=== PATIENT | female | born 1950 | race American Indian/Alaskan Native ===

== ENCOUNTER 2016-09-21 10:26 | Inpatient (IN) | payer MEDICARE, BC, OTHER ==
[~2016-09-21] VITALS: Ht 165.1 cm; Wt 96.5 kg
[~2016-09-21 10:26] MED LIST: ASPI-496 PO; ERGO500017 PO; FERR324T5 PO; INSU100V13 SQ; KETO5DRO4 OP; LORA10TA3 PO; LOSA25TA5 PO; ROSU20TA PO; SODI650T PO
[2016-09-21 11:28] VITALS: BP 137/85
[2016-09-21 11:41] LABS: BLOOD UREA NITROGEN 50 mg/dL (7-18)
[2016-09-21] MEDS: SODIUM CHLORIDE 0.9% 1,000 ML IV SCH ×3 (11:41→22:13)
[2016-09-21 11:45] LABS: ASPARTATE AMINO TRANSFERASE 11 U/L (15-37)
[2016-09-21] MEDS ORDERED: MANNITOL PMX 20% 500 ML ONE (11:47)
[2016-09-21] MEDS ORDERED: FUROSEMIDE 20 MG/2 ML ONE (11:48)
[2016-09-21] MEDS ORDERED: ALBUMIN HUMAN 5% 500 ML ONE (11:48)
[2016-09-21] MEDS ORDERED: INSULIN SINGLE DOSE, ER SQ-INSULIN ONE (11:49)
[2016-09-21] MEDS ORDERED: THROMBIN 5,000 UNIT VIAL TP ONE (12:12)
[2016-09-21] MEDS ORDERED: FENTANYL PF 250 MCG/5ML ONE (12:26)
[2016-09-21] MEDS ORDERED: MIDAZOLAM 1 MG/ML, 2ML ONE (12:26)
[2016-09-21] MEDS ORDERED: ROCURONIUM 10 MG/ML ONE (12:53)
[2016-09-21] MEDS ORDERED: NEOSTIGMINE 1 MG/ML, 10ML ONE (12:53)
[2016-09-21] MEDS ORDERED: PHENYLEPHRINE 10 MG/ML ONE (12:53)
[2016-09-21] MEDS ORDERED: PROPOFOL 10 MG/ML, 20ML ONE (12:53)
[2016-09-21] MEDS ORDERED: LIDOCAINE/PF 1.5%-EPI 1:200K, 30ML ONE (12:53)
[2016-09-21] MEDS ORDERED: ONDANSETRON 2MG/ML, 2ML ONE (12:53)
[2016-09-21] MEDS ORDERED: GLYCOPYRROLATE 0.2MG/1ML ONE (12:53)
[2016-09-21] MEDS ORDERED: CEFAZOLIN 1,000 MG ONE (12:53)
[2016-09-21] MEDS ORDERED: BUPIVACAINE/PF 0.25% ONE (12:55)
[2016-09-21] MEDS ORDERED: HYDROmorphone 1 MG/ML, 1ML ONE (13:13)
[2016-09-21] MEDS ORDERED: THROMBIN 20,000 UNIT VIAL TP ONE (13:59)
[2016-09-21] MEDS ORDERED: ONDANSETRON 2MG/ML, 2ML IVPush PRN ×2 (15:30→16:30)
[2016-09-21] MEDS ORDERED: FENTANYL PF 100 MCG/2ML EPIDPUSH PRN (15:30)
[2016-09-21] MEDS ORDERED: NALBUPHINE 10 MG/ML, 1ML IV PRN (15:30)
[2016-09-21] MEDS ORDERED: LABETALOL 5MG/ML, 20ML IV PRN (16:30)
[2016-09-21] MEDS ORDERED: hydrALAzine 20 MG/ML, 1ML IV PRN ×2 (16:30→21:00)
[2016-09-21] MEDS ORDERED: HYDROmorphone 1 MG/ML, 1ML IV PRN (16:30)
[2016-09-21] MEDS ORDERED: HYDROcodone/APAP 7.5-325MG/15ML UDC PO PRN (16:30)
[2016-09-21] MEDS ORDERED: PROMETHAZINE 25 MG/ML, 1ML IV PRN (16:30)
[2016-09-21] MEDS ORDERED: FENTANYL PF 100 MCG/2ML IV PRN (16:30)
[2016-09-21] MEDS ORDERED: EPHEDRINE 50 MG/ML, 1ML IVPush PRN (16:30)
[2016-09-21] MEDS ORDERED: ACETAMINOPHEN 325 MG TABLET PO PRN (16:30)
[2016-09-21] MEDS ORDERED: OXYcodone 5 MG/5 ML ORAL.SOL UDC PO PRN (16:30)
[2016-09-21] MEDS ORDERED: MIDAZOLAM 1 MG/ML, 2ML IV PRN (16:30)
[2016-09-21 17:49] LABS: HEMOGLOBIN 8.3 g/dL (11.7-16.4)
[2016-09-21 18:01] LABS: BLOOD UREA NITROGEN 45 mg/dL (7-18)
[2016-09-21 20:20] VITALS: BP 167/75
[2016-09-21] MEDS ORDERED: PHARMACY MAY ADJ FOR RENAL FX MC PRN (21:00)
[2016-09-21] MEDS ORDERED: CEFAZOLIN PMX 1GM/50ML 50 ML IVPB SCH (21:00)
[2016-09-21] MEDS ORDERED: ONDANSETRON 2MG/ML, 2ML IV PRN (21:00)
[2016-09-21] MEDS ORDERED: LACTATED RINGERS 1,000 ML IV SCH (21:00)
[2016-09-21] MEDS ORDERED: LORazepam 2 MG/ML, 1ML IV PRN (21:30)
[2016-09-21] MEDS ORDERED: LORazepam 1MG TABLET PO PRN (21:30)
[2016-09-21 22:58] LABS: HEMOGLOBIN 9.6 g/dL (11.7-16.4)
[2016-09-21 23:06] LABS: BLOOD UREA NITROGEN 50 mg/dL (7-18)
[2016-09-21 23:16] VITALS: BP 167/98
[2016-09-21] MEDS: LABETALOL 5MG/ML, 20ML IVPush SCH (23:20)
[2016-09-21] MEDS: KETOTIFEN MC SCH (23:30)
[2016-09-21 23:50] VITALS: BP 167/98
[2016-09-22] VITALS (9 sets, daily range): BP systolic 101–154; BP diastolic 61–76
[2016-09-22] MEDS: INSULIN REGULAR 100 UNITS/ML, 3ML VIAL SQ-INSULIN SCH ×4 (02:42→22:07)
[2016-09-22 05:55] LABS: BLOOD UREA NITROGEN 49 mg/dL (7-18)
[2016-09-22 06:04] LABS: HEMOGLOBIN 8.4 g/dL (11.7-16.4)
[2016-09-22] MEDS ORDERED: INSULIN REGULAR, HUMAN 100 UNITS/ML, 3ML MEDIUM DOSE SS SQ-INSULIN SCH (07:00)
[2016-09-22] MEDS: KETOTIFEN MC SCH ×3 (07:30→23:30)
[2016-09-22] MEDS: LABETALOL 5MG/ML, 20ML IVPush SCH ×3 (07:35→22:15)
[2016-09-22] MEDS: INSULIN DETEMIR 100 UNITS/ML, PEN SQ-INSULIN SCH ×2 (13:00→22:08)
[2016-09-22] MEDS ORDERED: INSULIN DETEMIR 100 UNITS/ML, PEN SQ-INSULIN SCH (13:00)
[2016-09-22] MEDS: BUPIVACAINE/PF 0.5%, 30ML 62.5 ML in SODIUM CHLORIDE 0.9% 187.5 ML EPIDCONT SCH ×2 (15:30→17:00)
[2016-09-22] MEDS ORDERED: CEFAZOLIN PMX 1GM/50ML 50 ML IV ONE (16:00)
[2016-09-22] MEDS: SODIUM CHLORIDE 0.9% 1,000 ML IV SCH (16:11)
[2016-09-22] MEDS: FENTANYL PF 100 MCG/2ML IVPush PRN (22:38)
[2016-09-23 01:19] VITALS: BP 162/70
[2016-09-23] MEDS: FENTANYL PF 100 MCG/2ML IVPush PRN ×7 (01:58→23:25)
[2016-09-23] MEDS: INSULIN REGULAR 100 UNITS/ML, 3ML VIAL SQ-INSULIN SCH ×4 (03:00→21:32)
[2016-09-23 06:21] LABS: HEMOGLOBIN 8.3 g/dL (11.7-16.4)
[2016-09-23 06:38] LABS: ASPARTATE AMINO TRANSFERASE 13 U/L (15-37); BLOOD UREA NITROGEN 52 mg/dL (7-18)
[2016-09-23 06:45] VITALS: BP 168/79
[2016-09-23] MEDS: LABETALOL 5MG/ML, 20ML IVPush SCH ×3 (08:19→23:25)
[2016-09-23] MEDS: KETOTIFEN OP SCH ×2 (10:00→21:23)
[2016-09-23 13:32] VITALS: BP 149/73
[2016-09-23] MEDS: SODIUM CHLORIDE 0.9% 1,000 ML IV SCH (14:27)
[2016-09-23] MEDS: INSULIN DETEMIR 100 UNITS/ML, PEN SQ-INSULIN SCH (18:00)
[2016-09-23 19:34] VITALS: BP 158/77
[2016-09-24 01:14] VITALS: BP 165/72
[2016-09-24] MEDS: FENTANYL PF 100 MCG/2ML IVPush PRN ×2 (01:57→10:19)
[2016-09-24] MEDS: INSULIN REGULAR 100 UNITS/ML, 3ML VIAL SQ-INSULIN SCH ×5 (03:08→20:34)
[2016-09-24] MEDS: SODIUM CHLORIDE 0.9% 1,000 ML IV SCH (06:20)
[2016-09-24] MEDS: INSULIN DETEMIR 100 UNITS/ML, PEN SQ-INSULIN SCH ×2 (06:31→17:26)
[2016-09-24 06:57] LABS: HEMOGLOBIN 7.9 g/dL (11.7-16.4)
[2016-09-24 07:00] LABS: BLOOD UREA NITROGEN 49 mg/dL (7-18)
[2016-09-24 07:41] VITALS: BP 176/78
[2016-09-24] MEDS: KETOTIFEN OP SCH ×2 (09:17→20:20)
[2016-09-24 09:23] VITALS: BP 166/71
[2016-09-24] MEDS: LABETALOL 5MG/ML, 20ML IVPush SCH (09:30)
[2016-09-24] MEDS ORDERED: ERGOCALCIFEROL 50,000 UNIT CAPSULE PO SCH (10:00)
[2016-09-24 11:32] VITALS: BP 132/55
[2016-09-24] MEDS: AMLODIPINE 5 MG TABLET PO SCH (11:38)
[2016-09-24 13:42] VITALS: BP 143/74
[2016-09-24] MEDS ORDERED: BUPIVACAINE/PF 0.5%, 30ML 62.5 ML in SODIUM CHLORIDE 0.9% 187.5 ML EPIDCONT SCH (15:30)
[2016-09-24] MEDS ORDERED: HYDROcodone/APAP 5/325 TABLET ONE (16:05)
[2016-09-24] MEDS ORDERED: HYDROcodone/APAP 5/325 TABLET PO ONE (16:30)
[2016-09-24 20:04] VITALS: BP 179/68
[2016-09-24] MEDS: DOCUSATE 100 MG CAPSULE PO SCH (20:19)
[2016-09-24] MEDS: TEMPLATE NON-FORMULARY MED. (Rosuvastatin Calcium** (Crestor**) 20 MG) PO SCH (20:19)
[2016-09-24] MEDS: KETOTIFEN FUMARATE OP SCH (20:19)
[2016-09-25] MEDS: SODIUM CHLORIDE 0.9% 1,000 ML IV SCH ×2 (01:00→21:00)
[2016-09-25 04:00] VITALS: BP 126/63
[2016-09-25 04:51] LABS: HEMOGLOBIN 8.2 g/dL (11.7-16.4)
[2016-09-25 05:22] LABS: BLOOD UREA NITROGEN 46 mg/dL (7-18)
[2016-09-25] MEDS: INSULIN REGULAR 100 UNITS/ML, 3ML VIAL SQ-INSULIN SCH ×4 (06:58→21:00)
[2016-09-25 07:03] VITALS: BP 134/77
[2016-09-25] MEDS: LORATADINE 10 MG TABLET PO SCH (09:03)
[2016-09-25] MEDS: KETOTIFEN OP SCH ×2 (09:03→21:00)
[2016-09-25] MEDS: KETOTIFEN FUMARATE OP SCH ×2 (09:03→21:00)
[2016-09-25] MEDS: INSULIN DETEMIR 100 UNITS/ML, PEN SQ-INSULIN SCH ×2 (09:08→17:11)
[2016-09-25] MEDS: DOCUSATE 100 MG CAPSULE PO SCH ×2 (09:08→20:44)
[2016-09-25] MEDS: SODIUM BICARBONATE 650 MG TABLET PO SCH (09:09)
[2016-09-25] MEDS: FERROUS SULFATE 325 MG TABLET PO SCH (09:09)
[2016-09-25] MEDS: AMLODIPINE 5 MG TABLET PO SCH (09:09)
[2016-09-25 13:25] VITALS: BP 133/66
[2016-09-25 19:46] VITALS: BP 126/65
[2016-09-25] MEDS: TEMPLATE NON-FORMULARY MED. (Rosuvastatin Calcium** (Crestor**) 20 MG) PO SCH (21:00)
[2016-09-26] MEDS ORDERED: OXYC-302 PO (00:55)
[2016-09-26] MEDS ORDERED: DOCU-30 PO (00:57)
[2016-09-26 02:30] VITALS: BP 162/81
[2016-09-26 05:32] LABS: BLOOD UREA NITROGEN 47 mg/dL (7-18)
[2016-09-26] MEDS: INSULIN DETEMIR 100 UNITS/ML, PEN SQ-INSULIN SCH (06:55)
[2016-09-26 07:40] VITALS: BP 154/77
[2016-09-26] MEDS: INSULIN REGULAR 100 UNITS/ML, 3ML VIAL SQ-INSULIN SCH ×2 (08:39→11:51)
[2016-09-26] MEDS ORDERED: FURO20TA3 PO (08:53)
[2016-09-26] MEDS ORDERED: AMLO5TAB2 PO (08:53)
[2016-09-26] MEDS: AMLODIPINE 5 MG TABLET PO SCH (09:05)
[2016-09-26] MEDS: FERROUS SULFATE 325 MG TABLET PO SCH (09:05)
[2016-09-26] MEDS: LORATADINE 10 MG TABLET PO SCH (09:05)
[2016-09-26] MEDS: SODIUM BICARBONATE 650 MG TABLET PO SCH (09:05)
[2016-09-26] MEDS: DOCUSATE 100 MG CAPSULE PO SCH (09:05)
[2016-09-26] MEDS: KETOTIFEN FUMARATE OP SCH (09:06)
[2016-09-26] MEDS: KETOTIFEN OP SCH (09:06)
[2016-09-26 12:13] VITALS: BP 159/83
== END 2016-09-26 12:45 | disposition home or self-care (01) | DRG 656 ==
LOC: OUT 10:26 → 5SO 20:51 → 4NOR 09-23 12:02
PROVIDERS: ADMIT Urology
PROC: 0T9B70Z Drainage of Bladder with Drainage Device, Via Natural or Artificial Opening (ICD-10-PCS; 2016-09-21)
PROC: 0TB10ZZ Excision of Left Kidney, Open Approach (ICD-10-PCS; principal; 2016-09-21 12:00)
DX: C64.2 Malignant neoplasm of left kidney, except renal pelvis (principal); E43 Unspecified severe protein-calorie malnutrition; E87.2 Acidosis; N18.4 Chronic kidney disease, stage 4 (severe); E11.21 Type 2 diabetes mellitus with diabetic nephropathy; D64.9 Anemia, unspecified; E78.5 Hyperlipidemia, unspecified; E55.9 Vitamin D deficiency, unspecified; D50.9 Iron deficiency anemia, unspecified; F17.210 Nicotine dependence, cigarettes, uncomplicated; M25.562 Pain in left knee; Z79.4 Long term (current) use of insulin; Z87.440 Personal history of urinary (tract) infections; Z90.49 Acquired absence of other specified parts of digestive tract
CPT/HCPCS: 36415; 71010; 76998; 80048; 80053; 81001; 82040; 82436; 82570; 82962; 83036; 84133; 84300; 85014; 85018; 85025; 86850; 86900; 86923; 87086; 88304; 88305; 88307; 88329; 88331; 93005; 93970; J0690; J1170; J1815; J2250; J2405; J2704; J2710; J3010; J3490; P9045; C1760; J0360; J1940; J2370; J7030; J7050; J7120